=== PATIENT | male | born 1965 | race Caucasian/White ===

== ENCOUNTER 2020-01-06 19:30 | Emergency (ER) | payer MEDICAID ==
[~2020-01-06] VITALS: Ht 177.8 cm; Wt 93.2 kg
[~2020-01-06 19:30] MED LIST: DIPH-423 PO; EMOL78CR TOP; NAPR-56 PO; NO HOME MEDS; PERM60CR19 TP
[2020-01-06] MEDS ORDERED: CLIN300C70 PO (20:16)
[2020-01-06] MEDS ORDERED: IBUP-1984 PO (20:16)
[2020-01-06 20:23] VITALS: BP 161/91
== END 2020-01-06 20:25 | disposition home or self-care (01) ==
LOC: ER 19:30
DX: K04.7 Periapical abscess without sinus (principal); Z56.0 Unemployment, unspecified; Z79.2 Long term (current) use of antibiotics; Z79.899 Other long term (current) drug therapy
CPT/HCPCS: 99283

== ENCOUNTER 2020-02-08 02:06 | Emergency (ER) | payer MEDICAID ==
[~2020-02-08] VITALS: Ht 177.8 cm; Wt 100.0 kg
[2020-02-08 02:08] VITALS: BP 131/76
== END 2020-02-08 03:44 | disposition home or self-care (01) ==
LOC: ER 02:06
DX: M25.511 Pain in right shoulder (principal); F17.210 Nicotine dependence, cigarettes, uncomplicated; Z56.0 Unemployment, unspecified; Z79.899 Other long term (current) drug therapy
CPT/HCPCS: 99281

== ENCOUNTER 2020-08-02 00:10 | Emergency (ER) | payer MEDICAID ==
[~2020-08-02] VITALS: Ht 177.8 cm; Wt 96.4 kg
[2020-08-02 00:27] VITALS: BP 124/85
== END 2020-08-02 00:52 | disposition home or self-care (01) ==
LOC: ER 00:11
DX: M79.641 Pain in right hand (principal); F17.200 Nicotine dependence, unspecified, uncomplicated; F15.90 Other stimulant use, unspecified, uncomplicated; Z72.89 Other problems related to lifestyle; Z56.0 Unemployment, unspecified; Z79.899 Other long term (current) drug therapy
CPT/HCPCS: 73130; 99283

== ENCOUNTER 2021-04-11 03:53 | Emergency (ER) | payer MEDICAID ==
[~2021-04-11] VITALS: Ht 177.8 cm; Wt 95.5 kg
[2021-04-11 03:57] VITALS: BP 127/88
== END 2021-04-11 11:22 | disposition left against medical advice (07) ==
LOC: ER 03:54
DX: H57.89 Other specified disorders of eye and adnexa (principal); Z53.21 Procedure and treatment not carried out due to patient leaving prior to being seen by health care provider

== ENCOUNTER 2022-12-16 22:02 | Emergency (ER) | payer MEDICAID ==
[~2022-12-16] VITALS: Ht 177.8 cm; Wt 91.6 kg
[2022-12-16 22:23] VITALS: BP 127/72
[2022-12-16] MEDS ORDERED: amox tr/potassium clavulanate 875/125mg TAB PO ONE (23:30)
[2022-12-16] MEDS ORDERED: AMOX-117 PO (23:31)
[2022-12-16] MEDS ORDERED: PRED20TA PO (23:31)
== END 2022-12-16 23:43 | disposition home or self-care (01) ==
LOC: ER 22:02
DX: J20.9 Acute bronchitis, unspecified (principal); F15.90 Other stimulant use, unspecified, uncomplicated; Z72.89 Other problems related to lifestyle; Z56.0 Unemployment, unspecified; Z79.899 Other long term (current) drug therapy
CPT/HCPCS: 99283

== ENCOUNTER 2024-09-18 22:14 | Emergency (ER) | payer MEDICAID ==
[~2024-09-18] VITALS: Ht 177.8 cm; Wt 103.0 kg
[2024-09-18 22:36] LABS: BASOPHILS # (AUTO) 0.2 X10'3 (0-0.2); BASOPHILS % (AUTO) 1.3 % (0-1); EOSINOPHILS # (AUTO) 0.6 X10'3 (0-0.9); EOSINOPHILS % (AUTO) 4.3 % (0-6); HEMATOCRIT 42.9 % (42.0-52.0); HEMOGLOBIN 14.6 g/dl (14.0-17.9); LYMPHOCYTES # (AUTO) 3.6 X10'3 (1.1-4.8); LYMPHOCYTES % (AUTO) 25.5 % (21-51); MEAN CORPUSCULAR HEMOGLOBIN 31.2 PG (27.0-31.0); MEAN CORPUSCULAR VOLUME 91.6 FL (78-98); MEAN PLATELET VOLUME 7.2 FL (7.4-10.4); MONOCYTES # (AUTO) 1.4 X10'3 (0-0.9); MONOCYTES % (AUTO) 9.9 % (2-12); NEUTROPHILS # (AUTO) 8.3 X10'3 (1.8-7.7); PLATELET COUNT 284 X10'3 (140-440); RED BLOOD COUNT 4.68 X10'6 (4.70-6.10); RED CELL DISTRIBUTION WIDTH 13.1 % (11.5-14.5); WHITE BLOOD COUNT 14.1 X10'3 (4.5-11.0)
[2024-09-18 22:47] LABS: ALANINE AMINOTRANSFERASE 30 U/L (12-78); ALBUMIN 3.7 G/DL (3.4-5.0); ALBUMIN/GLOBULIN RATIO 1.1 (1.1-1.5); ALKALINE PHOSPHATASE 96 IU/L (46-116); ANION GAP 10 (8-16); ASPARTATE AMINO TRANSFERASE 26 U/L (10-37); BILIRUBIN,TOTAL 0.5 MG/DL (0.1-1.0); BLOOD UREA NITROGEN 17 MG/DL (7-18); BUN/CREATININE RATIO 15.5 (10.0-20.0); CALCIUM 9.1 MG/DL (8.5-10.1); CHLORIDE 104 MMOL/L (99-107); GLUCOSE 113 MG/DL (70-104); SODIUM 141 MMOL/L (135-145); TOTAL CARBON DIOXIDE 27.2 MMOL/L (24-32); TOTAL PROTEIN 7.1 G/DL (6.4-8.2); eCRCL 77 ML/MIN; eGFR 69 ML/MIN
[2024-09-18 22:57] LABS: PRO BRAIN NATRIURETIC PEPTIDE 77 PG/ML (0-125)
[2024-09-19] MEDS ORDERED: IBUP-1984 PO (03:08)
[2024-09-19 03:23] VITALS: BP 135/70; PULSE 70; RESP 16; TEMP 98.6; O2SAT 96
== END 2024-09-19 03:25 | disposition home or self-care (01) ==
LOC: ER 22:14
DX: S29.011A Strain of muscle and tendon of front wall of thorax, initial encounter (principal); F15.90 Other stimulant use, unspecified, uncomplicated; X58.XXXA Exposure to other specified factors, initial encounter; Y93.89 Activity, other specified; Y92.89 Other specified places as the place of occurrence of the external cause; Y99.8 Other external cause status
CPT/HCPCS: 36415; 71045; 80053; 83880; 84484; 85025; 93005; 99285